=== PATIENT | female | born 1995 | race Caucasian/White ===

== ENCOUNTER 2019-10-18 11:12 | Emergency (ER) | payer BC ==
--- NOTE | 2019-10-18 13:11 | UC ---
Lower Extremity/Ankle HPI - HPI Summary HPI Summary: 23-year-old female presents complaining of left lower back pain and left knee pain. States approximately a month ago he developed some nontraumatic left medial knee pain. She was evaluated at the [facility] [place] and told she had a mild sprain. Patient states that the knee pain has been persistent but has had no worsening in pain. No bruising or swelling noted. Reports that 2 weeks ago she started developing some left lower back pain as well. Describes pain as a constant ache. Nonradiating. Worsens with sitting, walking, twisting , and bending. Reports some mild nausea and 1 episode of vomiting when the pain became very severe. Has taken ibuprofen 800 mg with no relief in pain. States she has not appointment with orthopedic surgery and her chiropractor at home next week. Denies fever, chills, abdominal pain, dysuria, frequency, urgency, hematuria, weakness, numbness, tingling, or loss of bowel or bladder control. - History of Current Complaint Chief Complaint: UCBackPain Stated Complaint: LEFT BACK AND KNEE PAIN Time Seen by Provider: 10/18/19 13:08 Hx Obtained From: Patient Hx Last Menstrual Period: 10/15/19 Pain Intensity: 6 - Allergies/Home Medications Allergies/Adverse Reactions: Allergies Allergy/AdvReac Type Severity Reaction Status Date / Time sertraline [From Zoloft] Allergy See Comment Verified 10/18/19 11:44 Home Medications: Home Medications Levothyroxine TAB* [Synthroid TAB*] 150 mcg PO DAILY 04/09/16 [History Confirmed 10/18/19] Cyclobenzaprine HCl 10 mg PO Q8HR PRN #21 tablet 10/18/19 [Rx] PMH/Surg Hx/FS Hx/Imm Hx Endocrine History: Thyroid Disease - Surgical History Surgical History: None - Family History Known Family History: Positive: Diabetes - FATHER - Social History Occupation: Employed Full-time Lives: With Family Alcohol Use: Occasionally Substance Use Type: None Smoking Status (MU): Never Smoked Tobacco Review of Systems All Other Systems Reviewed And Are Negative: Yes Constitutional: Negative: Fever, Chills Skin: Negative: Rash, Bruising Respiratory: Positive: Negative Cardiovascular: Positive: Negative Gastrointestinal: Positive: Vomiting, Nausea. Negative: Abdominal Pain, Diarrhea Genitourinary: Negative: Dysuria, Hematuria, Frequency, Urgency, Vaginal/Penile Discharge Motor: Negative: Weakness Neurovascular: Negative: Decreased Sensation Musculoskeletal: Positive: Other: - See HPI Neurological/Mental Status: Positive: Negative Is Patient Immunocompromised?: No Physical Exam - Summary Physical Exam Summary: GENERAL APPEARANCE: Alert and cooperative obese, young adult female who appears to be in no acute distress. CARDIAC: Normal S1 and S2. No S3, S4 or murmurs. Rhythm is regular. There is no peripheral edema, cyanosis or pallor. Extremities are warm and well perfused. Capillary refill is less than 2 seconds. Peripheral pulses intact. LUNGS: Clear to auscultation without rales, rhonchi, wheezing or diminished breath sounds. ABDOMEN: Positive bowel sounds. Soft, nondistended, nontender. No guarding or rebound. No masses or hepatosplenomegally. No CVA tenderness. MUSKULOSKELETAL: ROM intact to all extremities. No joint erythema or tenderness. Normal muscular development. Limping gait. BACK: No midline spinal deformity or tenderness. Left lumbar paraspinous soft tissue tenderness without muscular spasm. EXTREMITIES: Tenderness to the medial joint line of the left knee without gross deformity, ecchymosis, erythema, or edema. Full ROM. No laxity. Circulation and sensation intact. SKIN: Skin normal color, texture and turgor. Triage Information Reviewed: Yes Vital Signs: Initial Vital Signs Temp 97.1 F 10/18/19 11:46 Pulse 75 10/18/19 11:46 Resp 16 10/18/19 11:46 BP 107/72 10/18/19 11:46 Pulse Ox 97 10/18/19 11:46 Vital Signs Reviewed: Yes Lower Extremity Course/Dx - Course Course Of Treatment: 23-year-old female presents complaining of left lower back pain and left knee pain. States approximately a month ago he developed some nontraumatic left medial knee pain. She was evaluated at the [facility] [place] and told she had a mild sprain. Patient states that the knee pain has been persistent but has had no worsening in pain. No bruising or swelling noted. Reports that 2 weeks ago she started developing some left lower back pain as well. Describes pain as a constant ache. Nonradiating. Worsens with sitting, walking, twisting , and bending. Reports some mild nausea and 1 episode of vomiting when the pain became very severe. His taken ibuprofen 800 mg with no relief in pain. States she has not appointment with orthopedic surgery and her chiropractor at home next week. Denies fever, chills, abdominal pain, dysuria, frequency, urgency, hematuria, weakness, numbness, tingling, or loss of bowel or bladder control. Afebrile. VSS. Patient had no midline spinal deformity or tenderness, There was some left lumbar paraspinous soft tissue tenderness without muscular spasm. Abdomen was soft and nontender. No CVA tenderness. She had some tenderness to the medial joint line of the left knee without gross deformity, ecchymosis, erythema, or edema. Full ROM. No laxity. Circulation and sensation intact. POC UA showed 3+ blood however patient is currently having her menses. Discussed with her that the presence of the blood was most likely from her menses however I could not fully rule out kidney stone although I have a very low suspicion for this. Patient is electing for watchful waiting and to defer CT scan at this time which I feel is reasonable. Recommending conservative treatment for low back pain and left knee pain. Will provide her with a prescription for cyclobenzaprine 10 mg q8h as needed for severe back pain or spasm. She is to follow up with orthopedic surgery here or at home if knee pain persists. Encouraged her to keep her chiropractic appointment as scheduled. Anticipatory guidance and warning symptoms reviewed with patient. Verbalizes understanding and agrees with POC. - Differential Dx/Diagnosis Differential Diagnosis/HQI/PQRI: Dislocation, Sciatica, Sprain, Strain, Tendonitis, Other - Herniated disc Provider Diagnosis: Left knee pain, Lower back pain Discharge ED - Sign-Out/Discharge Documenting (check all that apply): Patient Departure All imaging exams completed and their final reports reviewed: No Studies - Discharge Plan Condition: Stable Disposition: HOME Prescriptions: Cyclobenzaprine HCl 10 mg PO Q8HR PRN #21 tablet PRN Reason: Spasms - Back Patient Education Materials: Acute Low Back Pain (ED), Knee Pain (ED) Forms: *School Release, *Work Release Referrals: No Primary Care Phys,NOPCP [Primary Care Provider] - Ab Garcia MD [Medical Doctor] - 7 Days (If no improvement is symptoms. Call for appointment.) Additional Instructions: The urine test performed in the clinic today showed no evidence of infection. There was blood present in the urine however I suspect that this was from you' re menstrual period although I cannot fully rule out the possibility of a kidney stone at this time. I suspect that your low back pain is most likely musculoskeletal in origin and likely from you compensating for your knee pain. Continue to take ibuprofen 800 mg every 8 hours as needed for pain. Take cyclobenzaprine 10 mg 1 tablet every 8 hours as needed for severe pain lower back spasm. This medication will cause drowsiness do not take and drive or operate machinery. Apply a heating pad to her lower back for 15-20 minutes 3-4 times a day to help with the pain and relax the muscles. Apply ice to the knee for 15-20 minutes at least 4 times a day to help reduce the pain and any swelling. Follow-up with orthopedic surgery here or at home if the knee pain continues. Keep your chiropractic appointment next week as scheduled. Seek immediate medical attention in the emergency room if you develop fever greater than 100.5 F, has severe abdominal pain, persistent vomiting, develop weakness, numbness, or tingling in the legs, lose control of your bowel or bladder, or have any worsening of symptoms. - Billing Disposition and Condition Condition: STABLE Disposition: Home
[2019-10-18 14:07] VITALS: BP 113/72
== END 2019-10-18 14:07 | disposition home or self-care (01) ==
LOC: UCCORT 11:12
DX: M54.5 Low back pain (principal); M25.562 Pain in left knee; Z88.8 Allergy status to other drugs, medicaments and biological substances; E07.9 Disorder of thyroid, unspecified; Z79.890 Hormone replacement therapy
CPT/HCPCS: 81003; 99201; G0463